=== PATIENT | male | born 1950 | race Hispanic/Latino ===

== ENCOUNTER 2024-10-19 07:41 | Day surgery (SDC) | payer OTHER ==
[2024-10-08 12:30] LABS: Absolute Lymphocytes (CBC) 1.2 K/uL (0.7-4.9); Hematocrit 34.4 % (39.6-49.0); Hemoglobin 12.1 g/dL (13.6-17.9); MCH 30.3 pg (27.0-35.0); MCHC 35.1 g/dL (32.0-36.0); MCV 86.4 fL (80-100); MPV 9.1 fL (7.6-11.3); Nucleated RBC Absolute Count 0.0 (0-0); Nucleated Red Blood Cells % 0.0 % (0-0); RBC Red Blood Cell Count 3.98 M/uL (4.33-5.43); White Blood Count 7.60 thou/uL (4.3-10.9)
[2024-10-08 12:36] LABS: PT Prothrombin Time 41.6 SECONDS (10-13.0); Protime INR 3.83
[2024-10-08 12:38] LABS: Sqamous Epithelial None Seen /HPF (None Seen); Urine Culture Reflex Order REFLEXED; Urine Microscopic Reflex YN ORDER UMIC
[2024-10-08 12:46] LABS: Anion Gap 8.5 mEq/L (5.0-15.0); BUN Blood Urea Nitrogen 15.0 mg/dL (7-18); Glucose Level 132.0 mg/dL (74-106); Potassium 4.5 mEq/L (3.5-5.1)
--- NOTE | 2024-10-08 13:29 | RAD REPORT ---
EXAMINATION: ONE VIEW CHEST XR CLINICAL INDICATION: PREOP TECHNIQUE: Frontal chest projection is submitted. Examination is limited by patient positioning and t echnique. COMPARISON: 01/14/2014 FINDINGS: The lungs are well inflated and clear. The heart is upper limit of normal in size. No displaced fract ures identified. Sternotomy wires. IMPRESSION: No acute intrathoracic abnormalities.
[2024-10-19] MEDS ORDERED: NA CHLORIDE 0.9% 1,000 ML ONE (08:00)
[2024-10-19] MEDS ORDERED: LIDOCAINE 1% MPF 5 ML VIAL ONE (08:49)
[2024-10-19] MEDS ORDERED: FENTANYL CITR 100 MCG/2 ML ONE (08:49)
[2024-10-19] MEDS ORDERED: ONDANSETRON 4 MG/2 ML VIAL ONE (08:49)
[2024-10-19] MEDS: CEFAZOLIN SODIUM 1 GM/VIAL ONE (09:37)
[2024-10-19 09:46] LABS: PT Prothrombin Time 13.9 SECONDS (10-13.0); Protime INR 1.24
[2024-10-19] MEDS ORDERED: CEFAZOLIN SODIUM 1 GM/VIAL ONE (09:51)
[2024-10-19] MEDS ORDERED: EPHEDRINE SULF 50 MG/ML VIAL ONE (10:02)
[2024-10-19] MEDS ORDERED: PHENAZOPYRIDINE 100MG TAB PO ONE (11:02)
[2024-10-19] MEDS ORDERED: CODEINE 30MG/APAP 300MG TAB PO PRN (11:02)
--- NOTE | 2024-10-19 11:23 | P.OP ---
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 In preparation for radiation therapy, which he had elected to treat his prostate cancer, he decided to proceed with placement of UroLift to improve his symptoms and potentially allow him to get off of the alpha-cristin in preparation for radiation treatment. Procedure note: The patient was consented in the preoperative holding area before being transferred to the operative suite where general anesthesia was induced. He was given Ancef 2 g IV antimicrobial prophylaxis, and pneumoboots were provided for DVT prophylaxis. He was placed in the high lithotomy position, padded and secured to the table appropriately. The transrectal ultrasound probe was placed via his anus into his rectum under visualization after his genitalia was elevated out of the perineal region using an [place] drape. The prostate was visualized in axial and sagittal dimensions and held in position using a stepper device. Visualization from the seminal vesicles at the base all the way to the apex and perineal region was performed. The case was begun using the Barrigel injection needle primed with the hyaluronic acid gel, and I placed the needle via the skin of the perineum and navigated under ultrasound guidance over the rectal hump into the prerectal fat plane identified ultrasonographically. Because the space between the prostate and the rectum at the apex was very close, a bolus of the hyaluronic acid gel was given in that location in order to hydrodissect and enable me to pass the needle further through the prerectal fat plane into the mid base zone of the prostate in the midline. I then injected the first syringe of the gel containing about 5 cc into the midline creating a beautiful space from the seminal vesicles all the way to the apex of the prostate. I then surveyed laterally to the left and determined that additional gel needed to be placed on that side, and used a second syringe to elevate the prostate and from the rectum in that location by angling the needle tip into the left lateral side of the prostate in the prerectal fat plane. I then surveyed to the patient's right and similarly used the third syringe to begin injecting and the prostate on that side until beautiful separation could be seen from the base to the apex. I then removed the Barrigel needle, and repositioned the patient in the low lithotomy position for the UroLift. His genitalia was then prepped with Hibiclens and draped in standard fashion. Using the visual obturator and a 20 [place] sheath, I navigated through a slight degree of meatal stenosis to anterior the urethra and navigate through the prostatic urethra ultimately entering the bladder. I decompressed the bladder fluid and urine and switched the visual obturator for the first UroLift delivery device and implant. Targeting the patient's left side of the prostate about 1.5 to 2 cm distal to the bladder neck opening at around the 1 o'clock position dropping my hands to elevate the tissue anteriorly in that location with the needle at angled about 75 degrees from the 12 o'clock position, I angled the scope about 15 degrees against the tissue and pulled the trigger once delivering the needle through the substance of the prostate. A second pull of the trigger was performed after compressing the tissue and additional 15 degrees. This did deploy the capsular tab and partially retract the needle. A third pull of the trigger did completely retract the needle and began tensioning the suture. I then advanced the scope back toward the midline and 2 to 3 mm toward the bladder neck opening until the white line of the monofilament was centered in the delivery bay. At this point, I pulled the trigger a fourth time tailoring the suture and deploying the urethral handpiece. This did beautifully retract and elevate the tissue at the 1 o'clock position on the patient's left side. I then advanced the scope and delivery device back into the patient's bladder and replaced the spent implant with a new implant which was targeted on the patient's right side and the contralateral position of the bladder neck. Placed in the exact similar fashion, I was able to elevate and lateralize the tissue beautifully opening the bladder neck. I then targeted a third implant at the level of the verumontanum at around the 2 to 3 o'clock position on the left. A fourth implant was placed in the contralateral position at around 9-10 o'clock on the right side. I then surveyed the channel and there was some residual kissing lateral lobar hypertrophy in the mid zone of the prostate; so I placed a 5th implant into that tissue on the left side before placing a 6th implant at the 9 o'clock position on the right side in the mid zone of the prostate. Once 6 implants had been used, I surveyed the channel created situated at the level of the verumontanum using a visual obturator and was able to visualize a beautiful continuous anterior channel all the way into the bladder neck that did not allow the bladder to decompress with the outflow open. As a result, I irrigated his bladder to ensure no clots before ultimately decompressing the bladder and emptying it. I then remove the scope and took the patient out of the lithotomy position. He was then awakened from general anesthesia before being transferred to a stretcher. He was then transferred to the recovery room in good condition. Complications: None Discharge disposition: Subsequent follow-up should be established in about 1 month's time assessment postoperative UroLift. Radiation therapy can be planned to begin as soon as 3 to 4 weeks from today assuming his symptoms return to a new positive baseline.
[2024-10-19 13:20] VITALS: BP 168/51; TEMP 97.5; O2SAT 100
== END 2024-10-19 13:15 | disposition home or self-care (01) ==
LOC: OR 07:41
PROVIDERS: ATTEND Urology
PROC: 0T7D8DZ Dilation of Urethra with Intraluminal Device, Via Natural or Artificial Opening Endoscopic (ICD-10-PCS; principal; 2024-10-19 09:15)
PROC: 0VH43YZ Insertion of Other Device into Prostate and Seminal Vesicles, Percutaneous Approach (ICD-10-PCS; 2024-10-19 09:15)
DX: C61 Malignant neoplasm of prostate (principal); N40.1 Benign prostatic hyperplasia with lower urinary tract symptoms
CPT/HCPCS: 93005; 87088; 85025; 81001; 87086; 80048; 36415 ×2; 85610 ×2; 82947 ×2; 71045; 55876; J2704; J2003; J3010; J1100; J2405; J7030; J0690 ×2